=== PATIENT | male | born 1960 | race Caucasian/White ===

== ENCOUNTER 2017-03-04 08:30 | Day surgery (SDC) | payer BC ==
[2017-03-04] VITALS (9 sets, daily range): BP systolic 104–142; BP diastolic 57–80; PULSE 52–58; TEMP 97–98
[~2017-03-04] VITALS: Ht 170.2 cm; Wt 92.8 kg
[~2017-03-04 08:30] MED LIST: ALTACE 10MG TAB10 MG PO; DEPO-TESTOS100 MG/ML IM; NEXIUM 40MG40 MG PO; NORCO 325 MG-7.1 TAB PO; OMEGA-3 1000 MG1 CAP PO; TIROSINT25 MCG PO; TRILIPIX 135MG PO
[2017-03-04] MEDS ORDERED: LIPITOR20 MG PO (09:44)
[2017-03-04] MEDS ORDERED: VITAMIN C500 MG PO (09:46)
[2017-03-04] MEDS ORDERED: ECHINACEA 5001 EACH PO (09:47)
== END 2017-03-04 15:30 | disposition home or self-care (01) ==
LOC: SDCO 08:30
DX: K43.6 Other and unspecified ventral hernia with obstruction, without gangrene (principal); I10 Essential (primary) hypertension; E78.00 Pure hypercholesterolemia, unspecified; K21.9 Gastro-esophageal reflux disease without esophagitis; F17.210 Nicotine dependence, cigarettes, uncomplicated; N40.0 Benign prostatic hyperplasia without lower urinary tract symptoms; G47.33 Obstructive sleep apnea (adult) (pediatric); Z82.49 Family history of ischemic heart disease and other diseases of the circulatory system
CPT/HCPCS: C1713; C1781; J0690; J1100; J1170; J1885; J2250; J2270; J2405; J2704; J2710; J3010; J7120